=== PATIENT | female | born 1990 | race Caucasian/White ===

== ENCOUNTER 2021-03-01 17:19 | Emergency (ER) | payer OTHER ==
[~2021-03-01] VITALS: Ht 167.6 cm; Wt 61.2 kg
[2021-03-01 17:42] VITALS: BP 149/110
[2021-03-01] MEDS ORDERED: ADDERALL 20 MG20 M1 PO (17:47)
[2021-03-01] MEDS ORDERED: EUCRISA60 GM TOP (17:47)
== END 2021-03-01 21:10 | disposition home or self-care (01) ==
LOC: ER 17:19
DX: S00.83XA Contusion of other part of head, initial encounter (principal); Z79.891 Long term (current) use of opiate analgesic; Z79.899 Other long term (current) drug therapy; Y08.89XA Assault by other specified means, initial encounter; Y93.89 Activity, other specified; Y92.89 Other specified places as the place of occurrence of the external cause; Y99.8 Other external cause status